=== PATIENT | female | born 1960 | race Caucasian/White ===

== ENCOUNTER 2024-07-24 14:26 | Emergency (ER) | payer OTHER ==
[2024-07-24] VITALS (8 sets, daily range): BP systolic 129–139; BP diastolic 78–88
[~2024-07-24] VITALS: Ht 175.3 cm; Wt 74.8 kg
[2024-07-24] MEDS ORDERED: KETOROLAC TROMETHAMINE 30 MG/ML SDV IV ONE (14:35)
[2024-07-24] MEDS ORDERED: ORPHENADRINE CITRATE 30 MG/ML AMP IV ONE (14:35)
[2024-07-24] MEDS ORDERED: TRAMADOL HYDROC50 M1 PO (16:20)
[2024-07-24] MEDS ORDERED: NAPROXEN500 MG PO (16:20)
[2024-07-24] MEDS ORDERED: Diph, Acellular Pertussis, Tet 0.5 ML/VIAL (Tdap) SDV IM ONE (16:20)
== END 2024-07-24 16:57 | disposition home or self-care (01) | DRG 563 ==
LOC: ED 14:26
PROC: 2W3AX1Z Immobilization of Right Upper Arm using Splint (ICD-10-PCS; principal; 2024-07-24)
DX: S52.124A Nondisplaced fracture of head of right radius, initial encounter for closed fracture (principal); S80.211A Abrasion, right knee, initial encounter; V18.0XXA Pedal cycle driver injured in noncollision transport accident in nontraffic accident, initial encounter; Y93.55 Activity, bike riding
CPT/HCPCS: 90715; J2360